=== PATIENT | female | born 1990 ===

== ENCOUNTER 2017-03-20 01:12 | Emergency (ER) | payer OTHER ==
[2017-03-20 01:18] VITALS: TEMP 98.2; O2SAT 100
--- NOTE | 2017-03-20 02:26 | ED PDOC ---
HPI: Chest Pain Time Seen by Provider: 03/20/17 01:32 Chief Complaint (Nursing): Chest Pain History Per: Patient History/Exam Limitations: no limitations Onset/Duration Of Symptoms: Mins Current Symptoms Are (Timing): Still Present Severity: Moderate Quality: Sharp Associated Symptoms: Syncope. denies: Nausea, Dyspnea, Diaphoresis Additional History Per: Patient Additional Complaint(s): 26 y/o female following a syncopal episode this morning just [employer]. Her girlfriend reports that they were arguing when the patient developed some chest pressure and left arm numbness then lost consciousness. Girlfriend was able to keep her from falling during the few seconds she was unconscious. No loss of bowel or bladder. No chest pain at this time. Patient also complains of headache for the last two weeks, and has a history of similar in the past and is in the care of neurology. She denies that this is the worst headache of her life, that the pain came on suddenly, or that it is acute. Advil did not provide relief. PMD: clinic patient. Past Medical History Vital Signs: Last Vital Signs Temp 98.2 F 03/20/17 01:16 Pulse 63 03/20/17 04:42 Resp 16 03/20/17 04:42 BP 125/80 03/20/17 04:42 Pulse Ox 100 03/20/17 04:50 - Medical History PMH: Anemia (questionable) - Surgical History Surgical History: No Surg Hx - Family History Family History: States: Unknown Family Hx - Home Medications Home Medications: Ambulatory Orders Medication Instructions Recorded Docusate Sodium [Colace] 100 mg PO BID #60 capsule 03/20/17 Ferrous Sulfate 325 mg PO BID #60 tablet 03/20/17 - Allergies Allergies/Adverse Reactions: Allergies Allergy/AdvReac Type Severity Reaction Status Date / Time No Known Allergies Allergy Verified 09/12/14 20:35 Review of Systems ROS Statement: Except As Marked, All Systems Reviewed And Found Negative Cardiovascular: Positive for: Chest Pain, Light Headedness Physical Exam - Reviewed Nursing Documentation Reviewed: Yes Vital Signs Reviewed: Yes - Physical Exam Appears: Positive for: Well, Non-toxic, No Acute Distress Head Exam: Positive for: ATRAUMATIC, NORMAL INSPECTION, NORMOCEPHALIC Skin: Positive for: Normal Color, Warm, DRY Eye Exam: Positive for: EOMI, Normal appearance, PERRL ENT: Positive for: Normal ENT Inspection Neck: Positive for: Normal, Painless ROM Cardiovascular/Chest: Positive for: Regular Rate, Rhythm Respiratory: Positive for: CNT, Normal Breath Sounds Gastrointestinal/Abdominal: Positive for: Normal Exam, Bowel Sounds, Soft Back: Positive for: Normal Inspection Extremity: Positive for: Normal ROM Neurologic/Psych: Positive for: Alert, Oriented - Laboratory Results Result Diagrams: 03/20/17 02:21 03/20/17 02:21 - ECG ECG: Positive for: Interpreted By Me, Viewed By Me ECG Rhythm: Positive for: Normal QRS, Normal ST Segment, Sinus Bradycardia (47) . Negative for: ST/T Changes, Nonspecific Changes O2 Sat by Pulse Oximetry: 100 Medical Decision Making Medical Decision Making: Impression: Chest pain and syncope. Less likely ACS but there is a possibility of Pulmonary Embolus and Arrhythmia. Two week continuous headache as described - likely migraine less likely other condition. Plan: - Labs - EKG Recommended Head CT for her continuous headache, however the patient refused and wishes to see her neurologist in the office. D-Dimer is elevated at 278. CT Chest recommended. [facility] Final Radiology Report Call: [phone] assistance Online chat: [email or web address] Patient Name: JENN LI (Age): [id number] Gender: F Date of Exam: 03/20/2017 Referring Physician: Sanjay Meraz # of Images: [id number] Ordered As: CT ANGIO CHEST PE PROTOCOL CONFIDENTIALITY STATEMENT This report is intended only for use by the referring physician, and only in accordance with law. If you received this in error, call [phone]. Page 1 of 1 EXAM: CT Angiography Chest With Intravenous Contrast CLINICAL HISTORY: 26 years old, female; Pain; Chest pain; Radiating TECHNIQUE: Axial computed tomographic angiography images of the chest with intravenous contrast using pulmonary embolism protocol. All CT scans at this facility use one or more dose reduction techniques, viz.: automated exposure control; ma/kV adjustment per patient size (including targeted exams where dose is matched to indication; i.e. head); or iterative reconstruction technique. MIP reconstructed images were created and reviewed. Coronal and sagittal reformatted images were created and reviewed. CONTRAST: 99 mL of [id number] administered intravenously. COMPARISON: No relevant prior studies available. FINDINGS: Pulmonary arteries: No pulmonary embolism. Aorta: No aneurysm. No dissection. Lungs: No consolidation. Pleural space: No significant effusion. No pneumothorax. Heart: No cardiomegaly. No significant pericardial effusion. Bones/joints: No acute fracture. No dislocation. Soft tissues: Unremarkable. Lymph nodes: No pathologically enlarged lymph nodes. IMPRESSION: 1. No CT evidence of pulmonary embolism. Thank you for allowing us to participate in the care of your patient. Dictated and Authenticated by: Gopal Ann MD 03/20/2017 4:33 AM Eastern Time ([place] & [place]) Patient reevaluated. Results discussed. Encouraged her to see her neurologist and follow up as instructed. Patient discharged in stable condition. Scribe Attestation Documented by Kristin Manrique acting as a scribe for Dr. Meraz. Provider Attestation: All medical record entries made by the Scribe were at my direction and personally dictated by me. I have reviewed the chart and agree that the record accurately reflects my personal performance of the history, physical exam, medical decision making, and the department course for this patient. I have also personally directed, reviewed, and agree with the discharge instructions and disposition. Disposition - Clinical Impression Clinical Impression: Chest pain, Syncope, Iron deficiency anemia, Headache - Patient ED Disposition Is Patient to be Admitted: No Doctor Will See Patient In The: Office Counseled Patient/Family Regarding: Studies Performed, Diagnosis, Need For Followup - Disposition Referrals: [facility] [place] [Outside] Disposition: Routine/Home Disposition Time: 04:45 Condition: GOOD Additional Instructions: Follow up with your PCP in 2-3 days. Return for worsening. Prescriptions: Docusate Sodium [Colace] 100 mg PO BID #60 capsule Ferrous Sulfate 325 mg PO BID #60 tablet Instructions: Chest Pain (ED), Syncope (ED), Iron Deficiency Anemia (ED), General Headache (ED)
[2017-03-20 02:27] LABS: BASO % 0.6 % (0.0-2.0); EOS # 0.2 K/uL (0.0-0.7); EOS % 3.7 % (0.0-4.0); LYMPH # 2.6 K/uL (1.0-4.3); LYMPH % 41.1 % (20.0-40.0); MEAN CELL VOLUME 80.1 fl (81.0-99.0); MEAN CORPUSCULAR HEMOGLOBIN 25.3 pg (27.0-31.0); MEAN CORPUSCULAR HGB CONC 31.6 g/dL (33.0-37.0); MEAN PLATELET VOLUME 9.8 fl (7.2-11.7); MONO # 0.6 K/uL (0.0-0.8); MONO % 8.9 % (0.0-10.0); NEUT # 2.9 K/uL (1.8-7.0); NEUT % 45.7 % (50.0-75.0); NRBC % 0.1 % (0.0-0.0); RED CELL DISTRIBUTION WIDTH 15.1 % (11.5-14.5); WHITE BLOOD COUNT 6.4 K/uL (4.8-10.8)
[2017-03-20 02:33] LABS: BLOOD UREA NITROGEN 8 mg/dl (7-17); CALCIUM 9.5 mg/dL (8.4-10.2); CARBON DIOXIDE 24 mmol/L (22-30); CHLORIDE 105 mmol/L (98-107); GFR AFRICAN-AMERICAN > 60; GLUCOSE,RANDOM 90 mg/dL (65-105); POTASSIUM 4.5 MMOL/L (3.6-5.0); SODIUM 138 mmol/l (132-148)
[2017-03-20] MEDS ORDERED: Iodixanol 320 MG/ML 100 ML BOTTLE IV ONE (03:04)
[2017-03-20] MEDS ORDERED: Sodium Chloride 0.9% 50 ML IV ONE (03:04)
--- NOTE | 2017-03-20 04:33 | CT ---
EXAM: CT Angiography Chest With Intravenous Contrast CLINICAL HISTORY: 26 years old, female; Pain; Chest pain; Radiating TECHNIQUE: Axial computed tomographic angiography images of the chest with intravenous contrast using pulmonary embolism protocol. All CT scans at this facility use one or more dose reduction techniques, viz.: automated exposure control; ma/kV adjustment per patient size (including targeted exams where dose is matched to indication; i.e. head); or iterative reconstruction technique. MIP reconstructed images were created and reviewed. Coronal and sagittal reformatted images were created and reviewed. CONTRAST: 99 mL of [id number] administered intravenously. COMPARISON: No relevant prior studies available. FINDINGS: Pulmonary arteries: No pulmonary embolism. Aorta: No aneurysm. No dissection. Lungs: No consolidation. Pleural space: No significant effusion. No pneumothorax. Heart: No cardiomegaly. No significant pericardial effusion. Bones/joints: No acute fracture. No dislocation. Soft tissues: Unremarkable. Lymph nodes: No pathologically enlarged lymph nodes. IMPRESSION: 1. No CT evidence of pulmonary embolism.
[2017-03-20 04:42] VITALS: BP 125/80; PULSE 63; RESP 16
--- NOTE | 2017-03-20 08:39 | CARD ---
APPROVED REPORT EKG Measurement Heart [id number] <Conclusion> Sinus bradycardia RSR' or QR pattern in V1 suggests right ventricular conduction delay Borderline ECG
== END 2017-03-20 05:03 | disposition home or self-care (01) ==
LOC: H.ER 01:12
DX: R07.9 Chest pain, unspecified (principal); R55 Syncope and collapse; D50.9 Iron deficiency anemia, unspecified; R51 Headache
CPT/HCPCS: 71275; 80048; 81025; 84484; 85025; 85378; 93005; 99284; Q9967